=== PATIENT | male | born 1985 | race Caucasian/White ===

== ENCOUNTER 2017-07-21 07:15 | Emergency (ER) | payer OTHER ==
[~2017-07-21] VITALS: Ht 177.8 cm; Wt 87.3 kg
[2017-07-21 07:16] VITALS: TEMP 36.8; Ht 177.8 cm; Wt 87.3 kg
--- NOTE | 2017-07-21 07:55 | EMERGENCY ROOM VISIT NOTE ---
History First contact with patient: 07:21 Chief Complaint: FOREIGNBODY ANY BODY PART Stated Complaint: GLASS IN RIGHT FOOT History of Present Illness The patient is a 31 year old male who presents to the Emergency Room with complaints of a foreign body in his right heel. The patient reports that he stepped on glass on Thanksgiving. He was seen by his PCP yesterday, and had x- rays performed. The patient reports that he was instructed to come to the emergency department for further management. The patient reports that the foot is becoming more painful. He has not noticed any redness of the foot. The pain is worsened with weightbearing, rating his discomfort a 10 out of 10. Upon further questioning, the patient does have crutches at home but has not used them. Review of Systems 6 system review was performed and was negative except for pertinent positives and negatives as indicated in history of present illness Past Medical/Surgical History Medical Problems: (1) Benign hypertension Family History Unremarkable Social History Smoking Status: Current Every Day Smoker Alcohol Use: occasionally Drug Use: marijuana Marital Status: single Housing Status: lives with significant other Occupation Status: employed Current/Historical Medications No Active Prescriptions or Reported Meds Physical Exam Vital Signs Date Time Temp Pulse Resp B/P (MAP) Pulse Ox O2 Delivery O2 Flow Rate FiO2 07/21/17 07:16 36.8 109 20 143/95 96 Room Air Physical Exam CONSTITUTIONAL: Healthy and well nourished. Alert and oriented X 3 with positive affect. HEENT: Normocephalic, atraumatic. Pupils equal, round and reactive. NECK: Full active range of motion without discomfort. MUSCULOSKELETAL: Examination shows an area of hypertrophic tissue on the heel without any surrounding erythema or induration. There are no open wounds. No shadowing is noted with transillumination. INTEGUMENTARY: No rash or other significant dermatologic conditions noted. NEUROLOGIC: No focal neurologic deficits noted. Right foot and toes are sensory intact. Medical Decision & Procedures ED Course Patient history and physical exam were performed. Nurse's notes were reviewed. Vital signs were reviewed, showing an elevated blood pressure 143/95. Examination shows hypertrophic tissue on the heel. I explained to the patient that since it has been in the foot for the past month, he should really follow- up with orthopedics for further procedural intervention. The patient was encouraged to apply a drawing salve and dressing, and use his crutches to minimize weight on the foot. The patient wanted a prescription of pain medication. I explained that weightbearing is what's causing the pain, and if he is not putting weight on the foot, it will not hurt. He was provided contact information for [facility], and instructed to call them the day after [place]. The patient was administered a tetanus diphtheria immunization. The patient has an allergic reaction to pertussis vaccine. I did review hospital records, showing that the patient last received a tetanus immunization over 10 years ago. The patient voiced understanding of all discharge instructions, and denied any significant pain at the conclusion of my exam. The patient was also instructed to follow-up with PCP for blood pressure recheck. Medical Decision Medication Reconcilliation Current Medication List: was personally reviewed by me Blood Pressure Screening Patient's blood pressure: Elevated blood pressure Blood pressure disposition: Referred to PCP Impression Primary Impression: Acute foreign body of right heel Additional Impression: Elevated blood pressure reading Departure Information Dispostion Home / Self-Care Prescriptions No Active Prescriptions or Reported Meds Referrals Umesh Sol D.O. Forms HOME CARE DOCUMENTATION FORM, IMPORTANT VISIT INFORMATION Patient Instructions My [facility] [employer] Additional Instructions Use your crutches to keep weight off of the foot. Suggest applying a drawling salve and bandage to be healed. Ibuprofen if needed for additional pain relief, however crutches will provide the best pain relief. Follow-up with [facility] (Dr. Sol) for further reevaluation. Call their office on Sunday for an appointment. Problem Qualifiers Primary Impression: Acute foreign body of right heel Encounter type: initial encounter Qualified Codes: S90.851A - Superficial foreign body, right foot, initial encounter
[2017-07-21] MEDS ORDERED: DIPHTHERIA/TETANUS TOX ADSORBED ULTRAFINED 0.5 ML SYR/VIAL IM. ONE (08:00)
[2017-07-21 08:20] VITALS: BP 126/86; PULSE 85; O2SAT 99
== END 2017-07-21 08:21 | disposition home or self-care (01) ==
LOC: C.EDB 07:16 → C.EDA 08:21
DX: S90.851A Superficial foreign body, right foot, initial encounter (principal); W45.8XXA Other foreign body or object entering through skin, initial encounter; R03.0 Elevated blood-pressure reading, without diagnosis of hypertension; Z23 Encounter for immunization; I10 Essential (primary) hypertension; F17.200 Nicotine dependence, unspecified, uncomplicated

== ENCOUNTER 2017-08-24 17:07 | Inpatient (IN) | payer OTHER ==
[~2017-08-24] VITALS: Ht 177.8 cm; Wt 90.8 kg
[2017-08-24] MEDS ORDERED: DILTIAZEM HCL 5 MG/ML 5 ML VIAL ONE (17:16)
[2017-08-24] MEDS ORDERED: DILTIAZEM HCL 5 MG/ML 5 ML VIAL IV STA (17:21)
[2017-08-24] MEDS ORDERED: SODIUM CHLORIDE 0.9% 1000ML 1,000 ML IV STA (17:21)
[2017-08-24] MEDS ORDERED: DILTIAZEM BOLUS / DRIP IV STA ×2 (17:25)
--- NOTE | 2017-08-24 17:35 | EMERGENCY ROOM VISIT NOTE ---
History Report prepared by Catalina: Arslan Workman Under the Supervision of: Dr. Robert Garcia M.D. First contact with patient: 17:13 Chief Complaint: CARDIAC ASSESSMENT Stated Complaint: CHEST PAIN,NUMBNESS History of Present Illness The patient is a 31 year old male who presents to the Emergency Room with complaints of constant tachycardia starting around 1530 this afternoon. The patient states that he was drinking some juice, and his heart started racing. The patient states that he feels hot, short of breath, and his hands are getting numb. The patient denies any chest pain and loss of consciousness, though he is getting lightheaded. The patient reports that he was drinking alcohol for the past 3 days, though he did not drink any alcohol today. The patient states that he had an episode similar to this in the past, though it went away on its own. The patient denies any medical problems, and he is not on any medications daily. Per the nursing staff, the patient stated that he smokes marijuana daily, and he smoked this morning. Source of History: patient Onset: 1530 Position: other (heart) Quality: other (tachycardia) Timing: constant Associated Symptoms: + SOB, No LOC, No chest pain Note: Associated symptoms: Hand numbness and light headedness Review of Systems See HPI for pertinent positives & negatives. A total of 10 systems reviewed and were otherwise negative. Past Medical & Surgical Medical Problems: (1) Atrial fibrillation with RVR (2) Benign hypertension Social History Smoking Status: Current Every Day Smoker Alcohol Use: occasionally Drug Use: marijuana Marital Status: single Housing Status: lives with significant other Occupation Status: employed Current/Historical Medications No Active Prescriptions or Reported Meds Allergies Coded Allergies: Pertussis Vaccine (Verified Allergy, Mild, SWELLING, 08/24/17) Acetaminophen (Verified Allergy, Unknown, facial swelling, 08/24/17) Physical Exam Vital Signs Date Time Temp Pulse Resp B/P (MAP) Pulse Ox O2 Delivery O2 Flow Rate FiO2 08/24/17 18:47 161 18 118/94 99 Nasal Cannula 2.0 08/24/17 18:19 165 18 148/94 98 Nasal Cannula 2.0 08/24/17 18:16 186 08/24/17 17:54 175 20 113/96 100 Nasal Cannula 2.0 08/24/17 17:41 97 Room Air 08/24/17 17:31 96 Nasal Cannula 2.0 08/24/17 17:30 167 16 145/88 96 Nasal Cannula 2.0 08/24/17 17:17 258 08/24/17 17:09 36.4 146 20 146/89 99 Room Air Physical Exam GENERAL: Patient is in no acute distress and is slightly anxious appearing. HEENT: No acute trauma, normocephalic atraumatic, mucous membranes moist, no nasal congestion, no scleral icterus. NECK: No stridor, no adenopathy, no meningismus, trachea is midline. LUNGS: Clear to auscultation bilaterally, no wheeze, no rhonchi, breath sounds equal. HEART: Tachycardic and irregular. No murmurs. ABDOMEN: Soft, nontender, bowel sounds positive, no hernias, no peritonitis. EXTREMITIES: No cyanosis or edema, full range of motion of all the joints without pain or difficulty, no signs for acute trauma. NEUROLOGIC: Oriented x 3, no acute motor or sensory deficits, no focal weakness. SKIN: No rash, no jaundice, no diaphoresis. Medical Decision & Procedures ER Provider Diagnostic Interpretation: Radiology results as stated below per my review and radiologist interpretation: CHEST ONE VIEW PORTABLE HISTORY: 31 years-old Male EVALUATE ALTERED MENTAL STATUS/WEAKNESS acutely altered mental status COMPARISON: Chest radiograph 03/31/2013 TECHNIQUE: Portable AP view of the chest FINDINGS: Cardiomediastinal and hilar silhouettes are within normal limits. No pneumothorax, pleural effusion, focal airspace consolidation or overt pulmonary edema. Bones of the chest are grossly intact. IMPRESSION: No acute process. The above report was generated using voice recognition software. It may contain grammatical, syntax or spelling errors. Electronically signed by: Billy Robbins M.D. 08/24/2017 5:52 PM Dictated Date/Time: 08/24/2017 5:51 PM Laboratory Results 08/24/17 17:15 Red Blood Count 5.07, Mean Corpuscular Volume 90.7, Mean Corpuscular Hemoglobin 32.5, Mean Corpuscular Hemoglobin Concent 35.9, Mean Platelet Volume 10.3, Neutrophils (%) (Auto) 68.2, Lymphocytes (%) (Auto) 20.2, Monocytes (%) (Auto) 11.0, Eosinophils (%) (Auto) 0.2, Basophils (%) (Auto) 0.2, Neutrophils # (Auto ) 9.08, Lymphocytes # (Auto) 2.69, Monocytes # (Auto) 1.46, Eosinophils # (Auto ) 0.02, Basophils # (Auto) 0.02 08/24/17 17:15 Test 08/24/17 17:15 08/24/17 17:22 08/24/17 18:05 08/24/17 19:06 White Blood Count 13.30 K/uL (4.8-10.8) Red Blood Count 5.07 M/uL (4.7-6.1) Hemoglobin 16.5 g/dL (14.0-18.0) Hematocrit 46.0 % (42-52) Mean Corpuscular Volume 90.7 fL (80-100) Mean Corpuscular Hemoglobin 32.5 pg (25-34) Mean Corpuscular Hemoglobin Concent 35.9 g/dl (32-36) Platelet Count 318 K/uL (130-400) Mean Platelet Volume 10.3 fL (7.4-10.4) Neutrophils (%) (Auto) 68.2 % Lymphocytes (%) (Auto) 20.2 % Monocytes (%) (Auto) 11.0 % Eosinophils (%) (Auto) 0.2 % Basophils (%) (Auto) 0.2 % Neutrophils # (Auto) 9.08 K/uL (1.4-6.5) Lymphocytes # (Auto) 2.69 K/uL (1.2-3.4) Monocytes # (Auto) 1.46 K/uL (0.11-0.59) Eosinophils # (Auto) 0.02 K/uL (0-0.5) Basophils # (Auto) 0.02 K/uL (0-0.2) RDW Standard Deviation 47.0 fL (36.4-46.3) RDW Coefficient of Variation 14.3 % (11.5-14.5) Immature Granulocyte % (Auto) 0.2 % Immature Granulocyte # (Auto) 0.03 K/uL (0.00-0.02) Prothrombin Time 9.9 SECONDS (9.0-12.0) Prothromb Time International Ratio 0.9 (0.9-1.1) Activated Partial Thromboplast Time 27.8 SECONDS (21.0-31.0) Partial Thromboplastin Ratio 1.1 Anion Gap 11.0 mmol/L (3-11) Est Creatinine Clear Calc Drug Dose 102.8 ml/min Estimated GFR () 98.4 Estimated GFR (Non- 84.9 BUN/Creatinine Ratio 12.6 (10-20) Calcium Level 9.2 mg/dl (8.5-10.1) Magnesium Level 2.0 mg/dl (1.8-2.4) Total Bilirubin 0.5 mg/dl (0.2-1) Aspartate Amino Transf (AST/SGOT) 75 U/L (15-37) Alanine Aminotransferase (ALT/SGPT) 70 U/L (12-78) Alkaline Phosphatase 81 U/L (45-117) Total Protein 8.4 gm/dl (6.4-8.2) Albumin 4.6 gm/dl (3.4-5.0) Globulin 3.8 gm/dl (2.5-4.0) Albumin/Globulin Ratio 1.2 (0.9-2) Thyroid Stimulating Hormone (TSH) 0.886 uIu/ml (0.300-4.500) Bedside Troponin I < 0.030 ng/ml (0-0.045) Urine Opiates Screen NEG (NEG) Urine Methadone, Qualitative NEG (NEG) Urine Barbiturates NEG (NEG) Urine Phencyclidine (PCP) Level NEG (NEG) Ur Amphetamine/Methamphetamine NEG (NEG) MDMA (Ecstasy) Screen NEG (NEG) Urine Benzodiazepines Screen NEG (NEG) Urine Cocaine Metabolite NEG (NEG) Urine Marijuana (THC) POS (NEG) Laboratory results reviewed by me. Medications Administered Medications (Trade) Dose Ordered Sig/Pasquale Route Start Time Stop Time Status Last Admin Dose Admin Sodium Chloride 1,000 ml @ 999 mls/hr Q1H1M STAT IV 08/24/17 17:21 08/24/17 18:21 DC 08/24/17 17:30 999 MLS/HR Diltiazem HCl (Cardizem Inj) 20 mg NOW STAT IV 08/24/17 17:21 08/24/17 17:25 DC 08/24/17 17:29 20 MG Diltiazem HCl 125 mg/Dextrose 125 ml @ 0 mls/hr Q0M PRN IV 08/24/17 17:45 09/23/17 17:44 08/24/17 19:26 25 MLS/HR Diltiazem HCl (Cardizem Bolus From Bag) 10 mg ONE ONCE IV 08/24/17 17:45 08/24/17 17:46 DC 08/24/17 17:44 10 MG Sodium Chloride 500 ml @ 999 mls/hr Q31M STAT IV 08/24/17 18:04 08/24/17 18:34 DC 08/24/17 17:59 999 MLS/HR ECG Indication: tachycardia Rate (beats per minute): 197 Rhythm: atrial fibrillation (rapid) Findings: PVC, other (Diffuse ST and T wave changes consistent with the fast rate) Change: The patient's EKG was interpreted by me. ED Course 1713: The patient was evaluated in room A3. A complete history and physical exam was performed. 1721: Diltiazem HCl 20mg IV, Sodium Chloride 1000 ml @ 999 mls/hr IV 1745: Diltiazem HCl 10mg IV, Diltiazem HCl 125mg/ Dextrose 20mls/hr IV 1802: I reevaluated the patient, and he was still tachycardic. 1804: Sodium Chloride 500 ml @ 999 mls/hr IV 1842: I reassessed the patient, and he was feeling better, though his heart was still going fast in the 160s. I discussed the treatment plan with him, and he was agreeable. 1855: Discussed the patient's case with Marzena Young PA-C. The patient will be evaluated for further management. Medical Decision Differential diagnoses include: A-fib or A-flutter, SVT, electrolyte imbalance, dehydration, anemia, cardiac ischemia, and holiday heart syndrome. There is a mild leukocytosis at 13,000, this could be consistent with infection or just the stress of his current situation. No concerning anemia. No significant electrolyte abnormality, kidney failure or hepatitis. EKG shows a very rapid A. fib with some ST changes. Cardiac enzyme testing times one does not suggest acute cardiac injury. Chest film does not show CHF or significant cardiomegaly. The patient appears to be in a euthyroid state. Urine tox shows marijuana. There is no coagulopathy. The patient was aggressively managed. He was given an IV saline bolus. He received IV diltiazem as a bolus and then was placed on a diltiazem drip. With the above treatment, the heart rate has slowed but he still remains in a rapid A. fib. The patient feels much improved but he will require a hospital stay as he remains in A. fib. This presentation is likely consistent with his recent heavy alcohol use. I did speak to the patient and case management. The on- call hospitalist was consulted. Medication Reconcilliation Current Medication List: was personally reviewed by me Blood Pressure Screening Patient's blood pressure: Elevated blood pressure Monitored by the hospitalist Consults Time Called: 1841 Consulting Physician: Marzena Young PA-C Returned Call: [phone] Discussed the patient's case with Marzena Young PA-C. The patient will be evaluated for further management. Impression Primary Impression: Rapid atrial fibrillation Critical Care I have personally spent greater than 40 minutes of critical care time in the direct management of this patient. This includes bedside care, interpretation of diagnostic studies, and testing, discussion with consultants, patient, and family members, and other required patient management activities. This 40 minutes is in excess of all separately billable procedures. Scribe Attestation The scribe's documentation has been prepared under my direction and personally reviewed by me in its entirety. I confirm that the note above accurately reflects all work, treatment, procedures, and medical decision making performed by me. Departure Information Dispostion Being Evaluated By Hospitalist Prescriptions No Active Prescriptions or Reported Meds Referrals No Doctor, Assigned (PCP) Patient Instructions My [facility]
[2017-08-24] MEDS: DILTIAZEM HCL INJ 125 MG in DEXTROSE 5% 100ML IV PRN ×7 (17:38→22:21)
[2017-08-24] MEDS ORDERED: DILTIAZEM BOLUS FROM BAG IV ONE (17:45)
[2017-08-24] MEDS ORDERED: NURSING VERBAL MED ORDER ONE (17:45)
--- NOTE | 2017-08-24 17:53 | DIAGNOSTIC IMAGING REPORT ---
CHEST ONE VIEW PORTABLE HISTORY: 31 years-old Male EVALUATE ALTERED MENTAL STATUS/WEAKNESS acutely altered mental status COMPARISON: Chest radiograph 03/31/2013 TECHNIQUE: Portable AP view of the chest FINDINGS: Cardiomediastinal and hilar silhouettes are within normal limits. No pneumothorax, pleural effusion, focal airspace consolidation or overt pulmonary edema. Bones of the chest are grossly intact. IMPRESSION: No acute process. The above report was generated using voice recognition software. It may contain grammatical, syntax or spelling errors. Electronically signed by: Billy Robbins M.D. 08/24/2017 5:52 PM Dictated Date/Time: 08/24/2017 5:51 PM
[2017-08-24 18:02] LABS: INR 0.9 (0.9-1.1); PTT PATIENT 27.8 SECONDS (21.0-31.0)
[2017-08-24] MEDS ORDERED: SODIUM CHLORIDE 0.9% 500ML 500 ML IV STA (18:04)
[2017-08-24 18:11] LABS: ALBUMIN 4.6 gm/dl (3.4-5.0); CALCIUM 9.2 mg/dl (8.5-10.1); CREATININE 1.15 mg/dl (0.60-1.40); POTASSIUM 3.3 mmol/L (3.5-5.1)
[2017-08-24 18:22] LABS: TOTAL PROTEIN 8.4 gm/dl (6.4-8.2)
[2017-08-24 18:38] LABS: BASO % 0.2 %; BASO ABS # 0.02 K/uL (0-0.2); EOS % 0.2 %; EOS ABS # 0.02 K/uL (0-0.5); HEMOGLOBIN 16.5 g/dL (14.0-18.0); IG# 0.03 K/uL (0.00-0.02); LYMPH % 20.2 %; LYMPH ABS # 2.69 K/uL (1.2-3.4); MEAN CELL VOLUME 90.7 fL (80-100); MEAN CORPUSCULAR HEMOGLOBIN 32.5 pg (25-34); MEAN CORPUSCULAR HGB CONC 35.9 g/dl (32-36); MEAN PLATELET VOLUME 10.3 fL (7.4-10.4); MONO ABS # 1.46 K/uL (0.11-0.59); NEUT % 68.2 %; NEUT ABS # 9.08 K/uL (1.4-6.5); PLATELET COUNT 318 K/uL (130-400); RED CELL DISTRIBUTION WIDTH CV 14.3 % (11.5-14.5)
[2017-08-24] MEDS ORDERED: DILTIAZEM BOLUS / DRIP IV SCH (19:30)
[2017-08-24] MEDS ORDERED: POTASSIUM CHLR 10 MEQ / WTR 10 MEQ in PREMIXED WATER 100 ML IV STA (19:31)
[2017-08-24] MEDS ORDERED: NITROGLYCERIN 0.4 MG SL PER TAB CHARGE SL PRN (19:45)
[2017-08-24] MEDS ORDERED: ALUMINUM/MAGNESIUM/SIMETH (MAALOX MAX) 30 ML UDC PO PRN (19:45)
[2017-08-24] MEDS ORDERED: ONDANSETRON INJ 2 MG/ML 2 ML VIAL IV PRN (19:45)
[2017-08-24] MEDS ORDERED: MAGNESIUM HYDROXIDE SUSP 30 ML UDC PO PRN (19:45)
[2017-08-24] MEDS ORDERED: LORAZEPAM 2 MG/ML 1 ML VIAL IV PRN ×2 (19:45)
[2017-08-24] MEDS ORDERED: LORAZEPAM 2 MG/ML 1 ML VIAL IV STA (19:46)
[2017-08-24] MEDS ORDERED: LORAZEPAM 2 MG/ML 1 ML VIAL ONE (19:46)
--- NOTE | 2017-08-24 19:55 | History and Physical ---
History & Physical Date & Time of Service: Aug 24, 2017 at 19:54 Chief Complaint: Palpitations Primary Care Physician: MD Kiara History of Present Illness Source: patient, clinic records, hospital records This is a 31yo M with a PMH of alcohol abuse, tobacco and marijuana use who presents with palpitations that began at 3pm. Patient has been drinking heavily for years but has recently increased his intake due to 1 bottle of lety a day due to work stress. Has had a bottle a day of lety for the past 3 days with his last drink at 7pm last evening. Started to feel flushed and sweaty today, with a rapid heart rate.States that he has felt similar to this in withdrawal before but that his heart was beating much faster for a longer period of time today, so he had his family bring him from work to the ED for further evaluation. Endorses lightheadedness, nausea and some visual changes when he sits up or stands up quickly. Denies any fever, chills, pre-syncope, syncope, seizures, headache, confusion, chest pain, vomiting or difficulty with ambulation. Denies history of arrhythmias. Denies history of seizures with alcohol withdrawals in the past. Last used marijuana this morning. Past Medical/Surgical History Medical Problems: (1) Alcohol use disorder Status: Chronic (2) Tobacco use disorder Status: Chronic Social History Problems: (1) Marijuana use Status: Chronic Family History FH: heart disease FATHER (ID at age 51) MOTHER (ID at age 45 ) FH: hyperlipidemia Social History Smoking Status: Current Every Day Smoker (0.5-1 ppd) Alcohol Use: heavy (Drinks ~1 bottle of lety 5 days/week. ) Drug Use: marijuana Marital Status: in relationship Occupational Status: employed Allergies Coded Allergies: Pertussis Vaccine (Verified Allergy, Mild, SWELLING, 08/24/17) Acetaminophen (Verified Allergy, Unknown, facial swelling, 08/24/17) Home Medications No Active Prescriptions or Reported Meds Review of Systems Ten systems reviewed and negative except as noted in the HPI. Physical Exam Vital Signs Date Time Temp Pulse Resp B/P (MAP) Pulse Ox O2 Delivery O2 Flow Rate FiO2 08/24/17 18:47 161 18 118/94 99 Nasal Cannula 2.0 08/24/17 18:19 165 18 148/94 98 Nasal Cannula 2.0 08/24/17 18:16 186 08/24/17 17:54 175 20 113/96 100 Nasal Cannula 2.0 08/24/17 17:41 97 Room Air 08/24/17 17:31 96 Nasal Cannula 2.0 08/24/17 17:30 167 16 145/88 96 Nasal Cannula 2.0 08/24/17 17:17 258 08/24/17 17:09 36.4 146 20 146/89 99 Room Air General Appearance: + moderate distress, + pertinent finding (Anxious, flushed , sweaty.) Head: normocephalic, atraumatic Eyes: normal inspection, PERRL, sclerae normal ENT: normal ENT inspection, hearing grossly normal, pharynx normal (dry mucous membranes ) Neck: supple, thyroid normal, trachea midline Respiratory/Chest: lungs clear, normal breath sounds, no respiratory distress, no accessory muscle use Cardiovascular: normal peripheral pulses, + tachycardia, + irregularly irregular Abdomen/GI: non tender, soft, no organomegaly Extremities/Musculoskelatal: normal inspection, no calf tenderness, no pedal edema Neurologic/Psych: alert, normal mood/affect, oriented x 3 Skin: normal color (flushed ), warm/dry Diagnostics Laboratory Results Results Past 24 Hours Test 08/24/17 17:15 08/24/17 17:22 08/24/17 18:05 08/24/17 19:38 Range/Units White Blood Count 13.30 4.8-10.8 K/uL Red Blood Count 5.07 4.7-6.1 M/uL Hemoglobin 16.5 14.0-18.0 g/dL Hematocrit 46.0 42-52 % Mean Corpuscular Volume 90.7 80-100 fL Mean Corpuscular Hemoglobin 32.5 25-34 pg Mean Corpuscular Hemoglobin Concent 35.9 32-36 g/dl Platelet Count 318 130-400 K/uL Mean Platelet Volume 10.3 7.4-10.4 fL Neutrophils (%) (Auto) 68.2 % Lymphocytes (%) (Auto) 20.2 % Monocytes (%) (Auto) 11.0 % Eosinophils (%) (Auto) 0.2 % Basophils (%) (Auto) 0.2 % Neutrophils # (Auto) 9.08 1.4-6.5 K/uL Lymphocytes # (Auto) 2.69 1.2-3.4 K/uL Monocytes # (Auto) 1.46 0.11-0.59 K/uL Eosinophils # (Auto) 0.02 0-0.5 K/uL Basophils # (Auto) 0.02 0-0.2 K/uL RDW Standard Deviation 47.0 36.4-46.3 fL RDW Coefficient of Variation 14.3 11.5-14.5 % Immature Granulocyte % (Auto) 0.2 % Immature Granulocyte # (Auto) 0.03 0.00-0.02 K/uL Prothrombin Time 9.9 9.0-12.0 SECONDS Prothromb Time International Ratio 0.9 0.9-1.1 Activated Partial Thromboplast Time 27.8 21.0-31.0 SECONDS Partial Thromboplastin Ratio 1.1 Sodium Level 137 136-145 mmol/L Potassium Level 3.3 3.5-5.1 mmol/L Chloride Level 103 98-107 mmol/L Carbon Dioxide Level 23 21-32 mmol/L Anion Gap 11.0 3-11 mmol/L Blood Urea Nitrogen 15 7-18 mg/dl Creatinine 1.15 0.60-1.40 mg/dl Est Creatinine Clear Calc Drug Dose 102.8 ml/min Estimated GFR () 98.4 Estimated GFR (Non- 84.9 BUN/Creatinine Ratio 12.6 10-20 Random Glucose 139 70-99 mg/dl Calcium Level 9.2 8.5-10.1 mg/dl Magnesium Level 2.0 1.8-2.4 mg/dl Total Bilirubin 0.5 0.2-1 mg/dl Aspartate Amino Transf (AST/SGOT) 75 15-37 U/L Alanine Aminotransferase (ALT/SGPT) 70 12-78 U/L Alkaline Phosphatase 81 45-117 U/L Total Protein 8.4 6.4-8.2 gm/dl Albumin 4.6 3.4-5.0 gm/dl Globulin 3.8 2.5-4.0 gm/dl Albumin/Globulin Ratio 1.2 0.9-2 Thyroid Stimulating Hormone (TSH) 0.886 0.300-4.500 uIu/ml Bedside Troponin I < 0.030 0-0.045 ng/ml Urine Opiates Screen NEG NEG Urine Methadone, Qualitative NEG NEG Urine Barbiturates NEG NEG Urine Phencyclidine (PCP) Level NEG NEG Ur Amphetamine/Methamphetamine NEG NEG MDMA (Ecstasy) Screen NEG NEG Urine Benzodiazepines Screen NEG NEG Urine Cocaine Metabolite NEG NEG Urine Marijuana (THC) POS NEG CXR normal EKG A fib with RVR at a rate of 197 bpm with some PVCs. Diffuse ST and T wave changes Impression Assessment and Plan This is a 31yo M with a PMH of alcohol abuse, tobacco and marijuana use who presents with palpitations that began at 3pm. 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 Patient seen in collaboration with . Please see addendum. ATTENDING ADDENDUM : pt seen and examined ,care co ordinated with Donna Tamez PA-C 31 yo M hx of chronic alcohol/marijuana abuse -has been drinking non stop -1-2 Bottles for Lety last 3 days per Pt his Last alcohol drink was 7 pm around 3 PM today -he felt hot and flushed , with flutter /palpitation in chest , Dizzy and lightheaded , SOB in ER -pt found to be in Rapid AFib HR between 180-200 pt is very anxious complains of chest heaviness , palpitation no prior cardiac hx of arrhythmia P/E: GEn ; anxious young male , very flushed HEENT : sclera non icteric HT : rapid , irregular , no JVD noted, no lower ext edema Lungs: clear , no wheeze or rales Abdomen : soft, non tender Neuro: anxious , no focal neurological deficit A/P : RAPID AFIB RVR : possible due to alcohol toxicity /withdrawal symptom no prior hx of arrhythmia , or CAD/valvular disease pt given IV Cardizem bolus followed by IV Cardizem grt rate increased to 30 mg /hr , HR remains persistently elevated 150-180 pt is symptomatic with SOB , palpitation D/w Cardiology Dr Prado , pt will be IV Lopressor for severe withdrawal symptom /arrhythmia 5 mg IV Lopressor given in ER scheduled order : IV Lopressor q 6hrs ECHO /cardiac markers ordered pt will be evaluated by Cardiology in AM role of IV heparin d.w Cardiology pt;s CHAD2 scores :0 given risk for severe withdrawal -can lead to hypertensive Urgency -risk of IV heparin is higher than benefit will avoid anticoagulation cont Beta blocked for with drawl symptom ALCOHOL ABUSE /ETOH WITHDRAWAL hx of alcohol abuse has been drinking heavily past 3 days denies of past withdrawal SZ or requiring intubation pt is very anxious with tachyarrhythmia will be admitted to ICU beta elio for Afib RVR IV fluids with thiamine /folate will be started on Precedex gtt in ICU plan of care D/w ICU team LOW k due to alcohol abuse replaced follow K/Mg /phos level FULL CODE DVT PROPHYLAXIS ; sub q heparin DISPOSITION : admit to ICU for concern of severe Alcoholic withdrawal /refractory Afib RVR Maricruz Rodriguez MD Level of Care Critical Care Resuscitation Status FULL RESUSCITATION VTE Prophylaxis VTE Risk Assessment Done? Y/N: Yes Risk Level: High Given or contraindicated: Unfractionated heparin SQ Additional Copies To Rocky Craig M.D. Lesko, Michael G., DO
[2017-08-24] MEDS ORDERED: THIAMINE HCL 100 MG TAB PO ONE (20:00)
[2017-08-24] MEDS ORDERED: POTASSIUM CHLORIDE 10 MEQ TABCR PO ONE (20:00)
[2017-08-24] MEDS ORDERED: METOPROLOL TARTRATE 50 MG TAB PO ONE (20:00)
[2017-08-24] MEDS ORDERED: METOPROLOL TARTRATE 1 MG/ML VIAL IV STA (20:19)
[2017-08-24] MEDS ORDERED: METOPROLOL TARTRATE 1 MG/ML VIAL ONE (20:29)
[2017-08-24] MEDS ORDERED: DexMEDEtomidine HCL IV 200 MCG in SODIUM CHLORIDE 0.9% 50ML 48 ML IV PRN (20:32)
[2017-08-24] MEDS ORDERED: OPTIRAY 320 IV PRN (20:45)
[2017-08-24] MEDS ORDERED: POTASSIUM PHOS 3 MMOL/1 ML INFUSION IV STA (20:54)
[2017-08-24] MEDS ORDERED: METOPROLOL TARTRATE 50 MG TAB PO SCH ×2 (21:00)
[2017-08-24] MEDS ORDERED: POTASSIUM PHOSPHATE INJ 6 MMOL in SODIUM CHLORIDE 0.9% 100ML 100 ML IV ONE (21:15)
[2017-08-24] MEDS ORDERED: ICU PROTOCOL FOR HYPERGLYCEMIA PRN (21:15)
[2017-08-24 21:17] VITALS: BP 115/90; PULSE 111; TEMP 37; O2SAT 95
--- NOTE | 2017-08-24 21:22 | DIAGNOSTIC IMAGING REPORT ---
CHEST CTA for PULMONARY ARTERIES CT DOSE: 285.15 mGy.cm HISTORY: Atypical chest pain. TECHNIQUE: Multiaxial CT images of the chest were performed following the intravenous administration of contrast to evaluate the pulmonary arteries. Maximal intensity projection images were also obtained. A dose lowering technique was utilized adhering to the principles of ALARA. COMPARISON STUDY: Chest 12/12/2014. FINDINGS: There is a normal caliber thoracic aorta with no evidence for dissection. There is no evidence for pulmonary embolus. No pleural effusions. No pneumothorax. The liver and spleen are unremarkable. No mediastinal or hilar lymphadenopathy. The central airways are patent. No focal lung consolidations. Stable 3 mm nodule within the left upper lobe, stable 3 mm nodule within the right lower lobe and a stable 6 mm subpleural nodules along the right minor fissure. These are likely benign. IMPRESSION: 1. No evidence for pulmonary embolus. 2. Stable subcentimeter pulmonary nodules which are likely benign given the stability. Electronically signed by: Ben Leon M.D. 08/24/2017 9:21 PM Dictated Date/Time: 08/24/2017 9:13 PM
[2017-08-24] MEDS ORDERED: GABAPENTIN 600 MG TAB PO STA (21:24)
[2017-08-24] MEDS ORDERED: THIAMINE HCL 100 MG TAB PO STA (21:24)
[2017-08-24] MEDS ORDERED: MULTI-VITAMIN INFUSION INJ 10 ML, THIAMINE HCL INJ 100 MG, FoLIC ACID INJ 1 MG in SODIU... IV ONE (21:30)
[2017-08-24 21:46] VITALS: BP 115/90; PULSE 123; TEMP 37; O2SAT 97; Ht 177.8 cm; Wt 90.8 kg
[2017-08-24 22:00] VITALS: BP 129/82; PULSE 105; O2SAT 96
[2017-08-24] MEDS: D5W AND NSS 1,000 ML IV SCH (22:22)
--- NOTE | 2017-08-24 22:51 | Critical Care Consultation ---
Critical Care Consultation Date of Consultation: Aug 24, 2017. Attending Physician: Tamie German D.O. Reason for Consultation: 31-year-old male in A. fib with RVR likely secondary to significant alcohol withdrawal requiring close cardiovascular monitoring/treatment for breakthrough withdraw symptoms. History of Present Illness Patient is a 31-year-old male with no pertinent past medical history presenting to the emergency department with abrupt onset of tachycardia and shortness of breath. He reports that at approximately 3:30 PM, he was drinking juice when he noticed his heart was racing. He developed some associated shortness of breath and numbness in his head and hands bilaterally. He thought the feeling would pass as he has experienced this previously, however, his symptoms persisted prompting visit to the emergency department. Upon arrival to the emergency department, the patient was found to be in atrial fibrillation with rapid ventricular response. He received diltiazem 2 while in the emergency department. He was started on a diltiazem drip and received IV fluids. He had no fever. There is a slight leukocytosis. Chest x-ray demonstrates no acute findings. Cardiac enzymes were unremarkable. He has a slight hypokalemia of 3.3. Otherwise, his laboratory assessment was otherwise unremarkable. The patient admits to drinking "a few" shots of corinna daily. He does admit to having withdrawal like symptoms including flushed face, nausea, and runs of tachycardia if he is without alcohol for greater than 24 hours. The patient admits that he was "drunk for 36 hours straight" admitting to drinking one bottle of corinna per day. He has not had a drink since 7:30 last evening. While he has never had a seizure related to alcohol withdrawal, he does report his tachycardia some thin the does occur if he does not drink within 24 hours. Other than the persistent tachycardia, he reports that this feels consistent with previous episodes of withdrawal. The patient admits to increasing tobacco use in the form of cigarettes recently as his alcohol consumption is increased as well. He admits to regular marijuana use. He denies any other illicit substance use. Upon arrival to the ICU, the patient reports feeling much better after the administration of Ativan. He denies any current headaches, dizziness, lightheadedness, chest pain, palpitations, pleuritic pain, short of breath, nausea, vomiting, abdominal pain, hematochezia, melena, hematuria, or dysuria. The patient lives at home with his significant other. He reports no other daily medications. No significant family history of dysrhythmias, congenital cardiac illnesses, or sudden cardiac in young age individuals. Past Medical/Surgical History Medical Problems: (1) Alcohol use disorder (2) Tobacco use disorder Social History Problems: (1) Marijuana use Family History FH: heart disease FATHER (PR at age 51) MOTHER (PR at age 45 ) FH: hyperlipidemia Noncontributory Social History Smoking Status: Current Every Day Smoker Smokeless Tobacco Use: No Alcohol Use: heavy (Drinks ~1 bottle of corinna 5 days/week. ) Drug Use: marijuana Marital Status: in relationship Housing Status: lives with significant other Occupation Status: employed Allergies Coded Allergies: Pertussis Vaccine (Verified Allergy, Mild, SWELLING, 08/24/17) Acetaminophen (Verified Allergy, Unknown, facial swelling, 08/24/17) Home Medications Scheduled Folic Acid (Folic Acid), 1 TAB PO DAILY Thiamine HCl (Vitamin B-1), 100 MG PO DAILY Current Inpatient Medications Current Inpatient Medications Medications (Trade) Dose Ordered Sig/Pasquale Route Start Time Stop Time Status Last Admin Dose Admin Diltiazem HCl 125 mg/Dextrose 125 ml @ 0 mls/hr Q0M PRN IV 08/24/17 17:45 09/23/17 17:44 08/24/17 20:01 30 MLS/HR Aspirin (Ecotrin Tab) 81 mg QAM PO 08/25/17 09:00 09/24/17 08:59 Al Hydrox/Mg Hydrox/Simethicone (Maalox Max Susp) 15 ml Q4H PRN PO 08/24/17 19:45 09/23/17 19:44 Magnesium Hydroxide (Milk Of Magnesia Susp) 30 ml Q12H PRN PO 08/24/17 19:45 09/23/17 19:44 Ondansetron HCl (Zofran Inj) 4 mg Q6H PRN IV 08/24/17 19:45 09/23/17 19:44 Nitroglycerin (Nitrostat Tab) 0.4 mg UD PRN SL 08/24/17 19:45 09/23/17 19:44 Multivitamins 10 ml/Thiamine HCl 100 mg/Folic Acid 1 mg/Sodium Chloride 1,011.2 ml @ 500 mls/ hr Q2H2M ONCE IV 08/24/17 21:30 08/24/17 23:31 08/24/17 21:52 500 MLS/HR Lorazepam (Ativan Inj) PRN Dosing -Active Protocol Q1H PRN IV 08/24/17 19:45 09/23/17 19:44 08/24/17 22:12 2 MG Metoprolol Tartrate (Lopressor Iv) 5 mg Q6 IV. 08/25/17 00:00 09/24/17 00:00 Dextrose/Sodium Chloride 1,000 ml @ 200 mls/hr Q5H IV 08/24/17 22:00 09/23/17 21:59 Dexmedetomidine HCl 200 mcg/ Sodium Chloride 50 ml @ 0 mls/hr Q0M PRN IV 08/24/17 20:32 08/28/17 20:31 Ioversol (Optiray 320) 100 ml UD PRN IV 08/24/17 20:45 08/28/17 20:44 Potassium Phosphate 6 mmol/ Sodium Chloride 102 ml @ 88 mls/hr ONE ONCE IV 08/24/17 21:15 08/24/17 22:24 08/24/17 21:53 88 MLS/HR Miscellaneous Information (Icu Protocol For Hyperglycemia) 1 ea PRN PRN N/A 08/24/17 21:15 08/26/17 21:14 Thiamine HCl (Vitamin B-1 Tab) 100 mg DAILY PO 08/25/17 09:00 09/24/17 08:59 Gabapentin (Neurontin Tab) 600 mg Q6H PO 08/25/17 04:00 08/25/17 10:01 Gabapentin (Neurontin Tab) 600 mg Q8H PO 08/25/17 18:00 08/26/17 10:01 Gabapentin (Neurontin Tab) 600 mg Q12H PO 08/26/17 22:00 08/27/17 10:01 Gabapentin (Neurontin Tab) 600 mg Q24H PO 08/28/17 10:00 08/28/17 10:01 Heparin Sodium (Porcine) (Heparin Sq 5000 Unit/0.5ml) 5,000 unit Q12 SQ 08/25/17 09:00 09/24/17 08:59 Pantoprazole Sodium (Protonix Tab) 40 mg QAM PO 08/25/17 09:00 08/28/17 09:01 Review of Systems A complete 10-point Review of Systems was discussed with the patient, with pertinent positives and negatives listed in the History of Present Illness. All remaining Review of Systems questions can be considered negative unless otherwise specified. Physical Exam Date Time Temp Pulse Resp B/P (MAP) Pulse Ox O2 Delivery O2 Flow Rate FiO2 08/24/17 21:46 37.0 123 18 115/90 97 Room Air 08/24/17 20:54 129 20 148/89 95 08/24/17 20:43 129 20 148/89 95 Nasal Cannula 2.0 08/24/17 20:32 153 139/90 08/24/17 19:50 204 20 157/103 96 Room Air 08/24/17 18:47 161 18 118/94 99 Nasal Cannula 2.0 08/24/17 18:19 165 18 148/94 98 Nasal Cannula 2.0 08/24/17 18:16 186 08/24/17 17:54 175 20 113/96 100 Nasal Cannula 2.0 08/24/17 17:41 97 Room Air 08/24/17 17:31 96 Nasal Cannula 2.0 08/24/17 17:30 167 16 145/88 96 Nasal Cannula 2.0 08/24/17 17:17 258 08/24/17 17:09 36.4 146 20 146/89 99 Room Air VITAL SIGNS - Vital signs and nursing notes were reviewed. GENERAL - 31-year-old male appearing his stated age who is in no acute distress. Anxious appearing. Communicates well with provider and answers questions appropriately. SKIN - Without rashes. HEAD - NC/AT. EYES - PERRL with EOMI bilaterally. Sclera anicteric. Palpebral conjunctiva pink and moist with no injection noted. EARS - No deformities of external structures noted on gross examination bilaterally. NOSE - Midline and without cyanosis. MOUTH/OROPHARYNX - Without perioral cyanosis. Buccal mucosa pink and moist and without leukoplakia. Tongue midline with equal elevation of palate bilaterally. No tonsillar hypertrophy, erythema, or exudates noted. Good dentition noted. NECK - Neck with FROM. Supple to palpation. No lymphadenopathy noted. No nuchal rigidity. LUNGS - Chest wall symmetric without accessory muscle use, intercostals retractions, or central cyanosis. Normal vesicular breath sounds CTA B/L. No wheezes, rales, or rhonchi appreciated. CARDIAC - RRR with S1/S2. No murmur, rubs, or gallops appreciated. ABDOMEN - Abdominal contour flat without pulsations or visible masses. BS normoactive all four quadrants. No tenderness, palpable masses, hepatosplenomegaly, or ascites noted. EXTREMITIES - No clubbing or peripheral cyanosis. No pretibial edema present. +3 /5 radial and dorsalis pedis pulses palpated throughout. +5/5 strength noted in UE/LE bilaterally. NEUROLOGIC - Cranial nerves II through XII grossly intact. Sensory intact to light touch throughout. PSYCH - A&Ox3 and cooperates fully with examiner. Pt is very pleasant and interacts well with examiner. Laboratory Results Last 24 Hours Test 08/24/17 17:15 08/24/17 17:22 08/24/17 18:05 08/24/17 19:38 White Blood Count 13.30 K/uL Red Blood Count 5.07 M/uL Hemoglobin 16.5 g/dL Hematocrit 46.0 % Mean Corpuscular Volume 90.7 fL Mean Corpuscular Hemoglobin 32.5 pg Mean Corpuscular Hemoglobin Concent 35.9 g/dl Platelet Count 318 K/uL Mean Platelet Volume 10.3 fL Neutrophils (%) (Auto) 68.2 % Lymphocytes (%) (Auto) 20.2 % Monocytes (%) (Auto) 11.0 % Eosinophils (%) (Auto) 0.2 % Basophils (%) (Auto) 0.2 % Neutrophils # (Auto) 9.08 K/uL Lymphocytes # (Auto) 2.69 K/uL Monocytes # (Auto) 1.46 K/uL Eosinophils # (Auto) 0.02 K/uL Basophils # (Auto) 0.02 K/uL RDW Standard Deviation 47.0 fL RDW Coefficient of Variation 14.3 % Immature Granulocyte % (Auto) 0.2 % Immature Granulocyte # (Auto) 0.03 K/uL Prothrombin Time 9.9 SECONDS Prothromb Time International Ratio 0.9 Activated Partial Thromboplast Time 27.8 SECONDS Partial Thromboplastin Ratio 1.1 Sodium Level 137 mmol/L Potassium Level 3.3 mmol/L Chloride Level 103 mmol/L Carbon Dioxide Level 23 mmol/L Anion Gap 11.0 mmol/L Blood Urea Nitrogen 15 mg/dl Creatinine 1.15 mg/dl Est Creatinine Clear Calc Drug Dose 102.8 ml/min Estimated GFR () 98.4 Estimated GFR (Non- 84.9 BUN/Creatinine Ratio 12.6 Random Glucose 139 mg/dl Calcium Level 9.2 mg/dl Phosphorus Level 2.2 mg/dl Magnesium Level 2.0 mg/dl Total Bilirubin 0.5 mg/dl Aspartate Amino Transf (AST/SGOT) 75 U/L Alanine Aminotransferase (ALT/SGPT) 70 U/L Alkaline Phosphatase 81 U/L Total Protein 8.4 gm/dl Albumin 4.6 gm/dl Globulin 3.8 gm/dl Albumin/Globulin Ratio 1.2 Thyroid Stimulating Hormone (TSH) 0.886 uIu/ml Bedside Troponin I < 0.030 ng/ml Urine Opiates Screen NEG Urine Methadone, Qualitative NEG Urine Barbiturates NEG Urine Phencyclidine (PCP) Level NEG Ur Amphetamine/Methamphetamine NEG MDMA (Ecstasy) Screen NEG Urine Benzodiazepines Screen NEG Urine Cocaine Metabolite NEG Urine Marijuana (THC) POS Ethyl Alcohol mg/dL < 3.0 mg/dl Diagnostic Results Radiological imaging and reports were reviewed by myself. Radiologist's Interpretation as follows: CHEST ONE VIEW PORTABLE HISTORY: 31 years-old Male EVALUATE ALTERED MENTAL STATUS/WEAKNESS acutely altered mental status COMPARISON: Chest radiograph 03/31/2013 TECHNIQUE: Portable AP view of the chest FINDINGS: Cardiomediastinal and hilar silhouettes are within normal limits. No pneumothorax, pleural effusion, focal airspace consolidation or overt pulmonary edema. Bones of the chest are grossly intact. IMPRESSION: No acute process. CHEST CTA for PULMONARY ARTERIES CT DOSE: 285.15 mGy.cm HISTORY: Atypical chest pain. TECHNIQUE: Multiaxial CT images of the chest were performed following the intravenous administration of contrast to evaluate the pulmonary arteries. Maximal intensity projection images were also obtained. A dose lowering technique was utilized adhering to the principles of ALARA. COMPARISON STUDY: Chest 12/12/2014. FINDINGS: There is a normal caliber thoracic aorta with no evidence for dissection. There is no evidence for pulmonary embolus. No pleural effusions. No pneumothorax. The liver and spleen are unremarkable. No mediastinal or hilar lymphadenopathy. The central airways are patent. No focal lung consolidations. Stable 3 mm nodule within the left upper lobe, stable 3 mm nodule within the right lower lobe and a stable 6 mm subpleural nodules along the right minor fissure. These are likely benign. IMPRESSION: 1. No evidence for pulmonary embolus. 2. Stable subcentimeter pulmonary nodules which are likely benign given the stability. Assessment & Plan (1) Atrial fibrillation with RVR (2) Alcohol withdrawal Reason Critically Ill: 31-year-old male in A. fib with RVR likely secondary to significant alcohol withdrawal requiring close cardiovascular monitoring/ treatment for breakthrough withdraw symptoms. Neuro - * CAM ICU: NEGATIVE * Acute Alcohol Withdraw: * CIWA protocol in place - PRN Ativan/Gabapentin * Banana Bag. * Thiamine daily. * Precedex for worsening 2/2. Cardiac - * Atrial Fibrillation with Rapid Ventricular Response in the setting of acute alcohol withdraw ("[facility]"): * Continue Diltiazem gtt per cardiology. * PRN Metoprolol for rate control. * Precedex may be useful if EtOH w/d 2/2 worsen (i.e. tachy/HTN). * EKG - A-fib RVR@197bpm; QTc 402ms * AM Echo * Daily EKGs * Added CTA for ?Pulm Dz contributing (i.e. PE) * Appreciate Cardiology consultation. Respiratory - * No h/o Pulmonary Disease. * Daily Smoker: * Smoking cessation. * Nicotine patch PRN. * CT for PE ordered: * Daily smoker, Sedentary lifestyle, New onset A.fib RVR. * CTA Negative. * Supplemental O2 PRN. * Continuous Pulse Oximetry. GI - * Prophylaxis: Protonix * Normal Diet. * Will add Amylase/Lipase in the setting of EtOH abuse. RENAL/LYTES - * Hypokalemia: * Replaced by admitting service. * Will continue to monitor electrolytes for contribution to dysrhythmias. Replace appropriately. * D5W NSS@200mL/hr at this point. * Will monitor BSG and adjust maintenance fluids accordingly. * Banana Bag - will add for daily supplementation. - * No Sin at this point. * I&Os per protocol. ENDO - * No h/o DM. * BSGs w/ ISS/gtt per protocol. * No PMHx/FHx Thyroid disease. * TSH wnl - likely not contributing to A-fib. HEME - * Stable H&H - will trend. ID - * No concerns for Infection at this point. * Monitor fever curve. LINES/IV ACCESS - * PIVs intact. * Will reassess need for CVL if condition changes/medication needs require. DVT PROPHYLAXIS - * Per cardiology - will refrain from Heparin gtt at this point. * Will prophylax w/ Heparin SQ. * SCDs I have personally spent 45 minutes of critical care time in the direct management of this patient. This is a life/limb threatening event. This includes time spent evaluating patient, direct bedside care, chart review, placing orders, interpretation of diagnostic studies, discussion with consultants, patient, and family members, as well as other required patient management activities. This time is exclusive of all separately billable procedures, and teaching time and separate from and in addition to any other critical care service time. Thank you for this consultation allow us to be part of this patient's care. Please refer to my attending physician's documentation for any further recommendations. Attending addendum, The patient was seen, examined independently, chart reviewed, agree with assessment and plan of my colleague Jaylan. The patient presented to the hospital with episodes of palpitation and found to be in rapid A. fib. The patient was placed on Cardizem drip and did not require heparinization. The patient was seen by cardiology and appreciate their input. The patient underwent echocardiogram which showed normal LV function. No evidence also of venous thromboembolic event in this patient. The patient has been drinking heavily after he lost his job for the past month and he has not been in withdrawal. Most symptoms occur to him once he is abstinent from alcohol includes only diaphoresis. His physical exam today revealed young gentleman does not appear to be in any distress, his vital signs are stable, he is in normal sinus rhythm, rate of 80, blood pressure and O2 saturation on normal, S1-S2 regular rate and rhythm, lungs are clear, abdomen is benign, neurologically without tremor and nonfocal. His labs were reviewed as well as his imaging. All appeared normal except for minor atelectasis in the chest x-ray. Impression: #1 binge drinking of alcohol. #2 brief period of A. fib, rate controlled and converted to sinus rhythm. Appreciate cardiology input, no further recommendations or treatment is warranted. #3 I will start the patient on treatment with thiamine for the next 5 days. #4 the patient was to go home and he can be discharged safely from pulmonary standpoint. #5 the patient was instructed to quit alcohol. #6 he appears to be alert and oriented the following commands and no altered mental status. He is functional and he has no gait imbalance. He can be safely discharged to home. He lives with his fianc at home. He was advised to return back to the hospital if any medical issues emerged. Case discussed with the staff on rounds and details, CCT 45 minutes.
[2017-08-24 23:01] VITALS: BP 99/60; PULSE 77; O2SAT 95
[2017-08-25] VITALS (12 sets, daily range): BP systolic 95–134; BP diastolic 56–95; PULSE 65–108; TEMP 36.5–37; O2SAT 93–97
[2017-08-25] MEDS: METOPROLOL TARTRATE 1 MG/ML VIAL IV. SCH ×2 (00:18→06:00)
[2017-08-25 00:44] LABS: CREATININE 0.78 mg/dl (0.60-1.40); POTASSIUM 4.1 mmol/L (3.5-5.1)
[2017-08-25 00:45] LABS: PHOSPHORUS 3.2 mg/dl (2.5-4.9)
[2017-08-25] MEDS: D5W AND NSS 1,000 ML IV SCH (03:00)
[2017-08-25] MEDS: GABAPENTIN 600MG Q6H DOSE PO SCH ×3 (04:38→09:40)
[2017-08-25] MEDS: DILTIAZEM HCL INJ 125 MG in DEXTROSE 5% 100ML IV PRN (04:39)
[2017-08-25 06:55] LABS: BASO % 0.3 %; BASO ABS # 0.02 K/uL (0-0.2); EOS % 0.6 %; EOS ABS # 0.04 K/uL (0-0.5); HEMATOCRIT 41.9 % (42-52); HEMOGLOBIN 14.4 g/dL (14.0-18.0); IG# 0.02 K/uL (0.00-0.02); LYMPH % 24.6 %; LYMPH ABS # 1.58 K/uL (1.2-3.4); MEAN CELL VOLUME 92.3 fL (80-100); MEAN CORPUSCULAR HEMOGLOBIN 31.7 pg (25-34); MEAN CORPUSCULAR HGB CONC 34.4 g/dl (32-36); MEAN PLATELET VOLUME 9.9 fL (7.4-10.4); NEUT % 60.2 %; NEUT ABS # 3.85 K/uL (1.4-6.5); PLATELET COUNT 244 K/uL (130-400); RED CELL DISTRIBUTION WIDTH CV 14.1 % (11.5-14.5); WHITE BLOOD COUNT 6.41 K/uL (4.8-10.8)
[2017-08-25 07:04] LABS: PTT PATIENT 27.6 SECONDS (21.0-31.0)
[2017-08-25 07:27] LABS: ALBUMIN 3.5 gm/dl (3.4-5.0); ALT/SGPT 47 U/L (12-78); BLOOD UREA NITROGEN 7 mg/dl (7-18); CALCIUM 8.1 mg/dl (8.5-10.1); CARBON DIOXIDE 24 mmol/L (21-32); CHOLESTEROL 157 mg/dl (0-200); GLUCOSE 118 mg/dl (70-99); POTASSIUM 3.6 mmol/L (3.5-5.1); SODIUM 139 mmol/L (136-145)
[2017-08-25] MEDS ORDERED: HEPARIN 25,000 UNIT/500ML D5W 500 ML IV PRN (07:30)
[2017-08-25 07:33] LABS: ALKALINE PHOSPHATASE 71 U/L (45-117); AST/SGOT 36 U/L (15-37); LDL CHOLESTEROL CALCULATED 61 mg/dl; PHOSPHORUS 1.6 mg/dl (2.5-4.9); TOTAL PROTEIN 6.6 gm/dl (6.4-8.2)
--- NOTE | 2017-08-25 08:57 | ECHOCARDIOGRAM REPORT ---
*NOTICE TO RECEIVING REPUBL[employer] AGENCY This information is strictly Confidential and protected under [place] law. [place] law prohibits you from making any further disclosure of this information unless further disclosure is expressly permitted by the written consent of the person to whom it pertains or is authorized by law. A general authorization for the release of medical or other information is not sufficient for this purpose. Hospital accepts no responsibility if the information is made available to any other person, INCLUDING THE PATIENT. Interpretation Summary * Name: ROBIN GARDNER JR Study Date: 08/25/2017 06:43 AM BP: 119/74 mmHg * [facility]\1 HR: 69 * : 1985 (M/d/yyyy) Gender: Male Height: 69 in * Age: 31 yrs Ethnicity: [place] Weight: 192 lb * Ordering Physician: Maricruz Rodriguez * Referring Physician: Self, Referred * Performed By: Kit Robert RDCS * * Reason For Study: A-fub * BSA: 2.0 m2 * This was essentially a normal study. Procedure Details * A complete two-dimensional transthoracic echocardiogram was performed (2D, M-mode, Doppler and color flow Doppler). * The study was technically adequate. Left Ventricle * The left ventricle is normal in size. * There is normal left ventricular wall thickness. * Ejection Fraction = 55-60%. * The left ventricular wall motion is normal. Right Ventricle * The right ventricle is normal size. * The right ventricular systolic function is normal. Atria * The left atrial size is normal. * Right atrial size is normal. * The interatrial septum is intact with no evidence for an atrial septal defect. Mitral Valve * The mitral valve is normal in structure and function. Tricuspid Valve * The tricuspid valve is normal in structure and function. Aortic Valve * The aortic valve is normal in structure and function. Pulmonic Valve * The pulmonic valve is not well seen, but is grossly normal. Great Vessels * The aortic root and proximal ascending aorta are normal sized. Pericardium/Pleural * There is no pericardial effusion. MMode 2D Measurements and Calculations IVSd 0.71 cm IVSs 1.1 cm LVIDd 4.8 cm LVIDs 3.4 cm LVPWd 0.78 cm LVPWs 1.1 cm IVS/LVPW 0.91 FS 27.8 % EDV(Teich) 106.3 ml ESV(Teich) 49.1 ml EF(Teich) 53.8 % EDV(cubed) 109.0 ml ESV(cubed) 41.0 ml EF(cubed) 62.4 % % IVS thick 52.7 % % LVPW thick 44.7 % LV mass(C)d 115.1 grams LV mass(C)dI 56.7 grams/m\S\2 LV mass(C)s 118.0 grams LV mass(C)sI 58.1 grams/m\S\2 SV(Teich) 57.2 ml SI(Teich) 28.2 ml/m\S\2 SV(cubed) 68.0 ml SI(cubed) 33.5 ml/m\S\2 Ao root diam 3.1 cm Ao root area 7.8 cm\S\2 ACS 2.3 cm LA dimension 3.6 cm asc Aorta Diam 3.0 cm LA/Ao 1.1 LVOT diam 2.2 cm LVOT area 3.7 cm\S\2 LVAd ap4 18.1 cm\S\2 LVLd ap4 7.3 cm EDV(MOD-sp4) 38.5 ml EDV(sp4-el) 38.3 ml LVAs ap4 9.3 cm\S\2 LVLs ap4 6.2 cm ESV(MOD-sp4) 11.8 ml ESV(sp4-el) 12.0 ml EF(MOD-sp4) 69.4 % EF(sp4-el) 68.7 % LVAd ap2 26.1 cm\S\2 LVLd ap2 8.9 cm EDV(MOD-sp2) 63.9 ml EDV(sp2-el) 65.0 ml LVAs ap2 13.1 cm\S\2 LVLs ap2 7.1 cm ESV(MOD-sp2) 20.4 ml ESV(sp2-el) 20.6 ml EF(MOD-sp2) 68.1 % EF(sp2-el) 68.3 % LVLd %diff 12.2 % EDV(MOD-bp) 57.5 ml LVLs %diff 18.6 % ESV(MOD-bp) 15.8 ml EF(MOD-bp) 72.5 % SV(MOD-sp4) 26.7 ml SI(MOD-sp4) 13.2 ml/m\S\2 SV(MOD-sp2) 43.5 ml SI(MOD-sp2) 21.4 ml/m\S\2 SV(MOD-bp) 41.7 ml SI(MOD-bp) 20.5 ml/m\S\2 SV(sp4-el) 26.3 ml SI(sp4-el) 12.9 ml/m\S\2 SV(sp2-el) 44.4 ml SI(sp2-el) 21.9 ml/m\S\2 Doppler Measurements and Calculations MV E max indigo 104.1 cm/sec MV A max indigo 49.6 cm/sec MV E/A 2.1 MV dec time 0.17 sec Ao V2 max 122.4 cm/sec Ao max PG 6.0 mmHg Ao max PG (full) 1.7 mmHg IRMA(V,A) 3.1 cm\S\2 IRMA(V,D) 3.1 cm\S\2 LV V1 max PG 4.3 mmHg LV V1 max 103.1 cm/sec PA V2 max 85.1 cm/sec PA max PG 2.9 mmHg
[2017-08-25] MEDS ORDERED: HEPARIN SOD 5000 UNIT/0.5 ML CARP SQ SCH (09:00)
[2017-08-25] MEDS ORDERED: ASPIRIN 81 MG ECTAB PO SCH (09:00)
[2017-08-25] MEDS ORDERED: THIAMINE HCL 100 MG TAB PO SCH (09:00)
[2017-08-25] MEDS ORDERED: PANTOprazole SOD 40 MG TAB PO SCH (09:00)
[2017-08-25] MEDS ORDERED: MULTI-VITAMIN INFUSION INJ 10 ML, THIAMINE HCL INJ 100 MG, FoLIC ACID INJ 1 MG in SODIU... IV SCH (09:00)
[2017-08-25] MEDS ORDERED: THM100 PO (09:19)
[2017-08-25] MEDS ORDERED: FLV1 PO (09:19)
--- NOTE | 2017-08-25 09:22 | Discharge Instructions ---
Discharge Instructions Date of Service Aug 25, 2017. Admission Reason for Admission: Alcohol Withdrawal, Rapid Atrial Fibrillation Discharge Discharge Diagnosis / Problem: Atrial fibrillation with rapid ventrivular rate Discharge Goals Goal(s): Therapeutic intervention Activity Recommendations Activity Limitations: as noted below Lifting Limitations: gradually increase as tolerated Exercise/Sports Limitations: gradually increase as tolerated Please do not drink any alcohol; please re-consider outpatient treatment or at least meetings to help you refrain from any alcohol use. . Instructions / Follow-Up Instructions / Follow-Up Please see Dr. Canada next week as scheduled Current Hospital Diet Patient's current hospital diet: AHA Diet (Heart Healthy) Discharge Diet Recommended Diet: AHA Diet (Heart Healthy) Pending Studies Studies pending at discharge: no Laboratory Results Lipid Panel Test 08/25/17 06:18 Range/Units Triglycerides Level 243 H 0-150 mg/dl Cholesterol Level 157 0-200 mg/dl HDL Cholesterol 47 mg/dl Cholesterol/HDL Ratio 3.3 LDL Cholesterol, Calculated 61 mg/dl Medical Emergencies . Who to Call and When: Medical Emergencies: If at any time you feel your situation is an emergency, please call 911 immediately. . Non-Emergent Contact Non-Emergency issues call your: Primary Care Provider, Corporate Administrative Assistant . . "Provider Documentation" section prepared by Tamie German. . VTE Core Measure Inpt VTE Proph given/why not?: Unfractionated heparin SQ
--- NOTE | 2017-08-25 12:21 | CARDIOLOGY CONSULTATION ---
DATE OF CONSULTATION: 08/25/2017 REFERRING PHYSICIAN: Marzena gallagher. REASON FOR CONSULTATION: Atrial fibrillation. HISTORY OF PRESENT ILLNESS: This is a 31-year-old male patient who admits to drinking at least a bottle corinna daily. He apparently was bingeing the last several days and then developed flushing and sweating followed by a rapid heart rate. He presented to the Emergency Department where he was found to be in atrial fibrillation with RVR. The patient was first started on diltiazem and was given intravenous Lopressor. He was also given 1 mg of Ativan IV. The patient spontaneously converted to normal sinus rhythm this morning. His cardiac troponins are negative. He had an echocardiogram this morning, which is essentially normal. ALLERGIES: PERTUSSIS AND ACETAMINOPHEN. PAST MEDICAL HISTORY: The patient has minimal past medical history. No prior history of heart disease, diabetes, strokes or kidney disease. SOCIAL HISTORY: The patient is a smoker. He admits to at least 1 bottle corinna daily. FAMILY MEDICAL HISTORY: Noncontributory. REVIEW OF SYSTEMS: A 10-point review of systems is negative except for the history of chief complaint. PHYSICAL EXAMINATION: GENERAL: He is alert and oriented in no acute distress. VITAL SIGNS: Sinus rhythm. Blood pressure 130/90. He is afebrile. HEENT: He is normocephalic. Pupils are equal and reactive to light. Extraocular muscles are intact bilaterally. NECK: The neck veins are flat. Carotids have good upstrokes bilaterally without bruits. Thyroid is nonpalpable. RESPIRATORY: Breath sounds equal bilaterally and clear to auscultation. CARDIOVASCULAR: Heart has a regular rhythm. Normal S1 and S2. No S3 or S4. No cardiac rubs or murmurs. GASTROINTESTINAL: Abdomen is soft and nontender without organomegaly. EXTREMITIES: Free of edema, digit clubbing, or cyanosis. NEUROLOGIC: Grossly intact. SKIN: Warm to touch. LYMPH NODES: Negative to palpation. IMPRESSION: 1. Paroxysmal atrial fibrillation due to the holiday heart. 2. Alcohol withdrawal. RECOMMENDATIONS: The patient's echocardiogram is normal. I do not believe any additional cardiac testing is indicated at this time. I counseled the patient on the need to stop alcohol abuse and its potential for heart disease. He seems to understand. At this point, he is not interested in a rehabilitation program. From a cardiac standpoint, he can be discharged to outpatient followup.
--- NOTE | 2017-08-25 15:35 | Discharge Summary ---
Discharge Summary Date of Service Aug 25, 2017. Discharge Summary Admission Date: Aug 24, 2017 at 19:49 Discharge Date: Aug 25, 2017 Discharge Disposition: Home Principal Diagnosis: Atrial fibrillation with RVR, possible alcohol withdrawal Medication Reconciliation New Medications: Folic Acid (Folic Acid) 1 Mg Tab 1 TAB PO DAILY, #7 TABS Thiamine HCl (Vitamin B-1) 100 Mg Tab 100 MG PO DAILY, #7 TAB Admission Information HPI (per Admitting provider): This is a 31yo M with a PMH of alcohol abuse, tobacco and marijuana use who presents with palpitations that began at 3pm. Patient has been drinking heavily for years but has recently increased his intake due to 1 bottle of corinna a day due to work stress. Has had a bottle a day of corinna for the past 3 days with his last drink at 7pm last evening. Started to feel flushed and sweaty today, with a rapid heart rate.States that he has felt similar to this in withdrawal before but that his heart was beating much faster for a longer period of time today, so he had his family bring him from work to the ED for further evaluation. Endorses lightheadedness, nausea and some visual changes when he sits up or stands up quickly. Denies any fever, chills, pre-syncope, syncope, seizures, headache, confusion, chest pain, vomiting or difficulty with ambulation. Denies history of arrhythmias. Denies history of seizures with alcohol withdrawals in the past. Last used marijuana this morning. Physical Exam (per Admitting): General Appearance: + moderate distress, + pertinent finding (Anxious, flushed, sweaty.) Head: normocephalic, atraumatic Eyes: normal inspection, PERRL, sclerae normal ENT: normal ENT inspection, hearing grossly normal, pharynx normal (dry mucous membranes ) Neck: supple, thyroid normal, trachea midline Respiratory/Chest: lungs clear, normal breath sounds, no respiratory distress, no accessory muscle use Cardiovascular: normal peripheral pulses, + tachycardia, + irregularly irregular Abdomen/GI: non tender, soft, no organomegaly Extremities/Musculoskelatal: normal inspection, no calf tenderness, no pedal edema Neurologic/Psych: alert, normal mood/affect, oriented x 3 Skin: normal color (flushed ), warm/dry Hospital Course Patient was admitted with A fib with RVR, symptomatic with palpitations, and possible withdrawal after several days of heavy alcohol use. The patient's HR has been stable today off the cardizem drip and he was evaluated by Cardiology Dr. Prado who advised the patient to go to rehab for the alcoholism which the patient did refuse. The patient was also evaluated by the Radiator Fitter Dr. Roberson who did believe that the patient was not likely in withdrawal, but symptoms more likely from the A fib with RVR and did not believe the patient needed further ICU care. The patient was very anxious to leave the hospital despite being encouraged to stay for additional monitoring in telemetry as the A fib could recur and if the patient was indeed withdrawing he would benefit from being in the hospital however he did refuse that option as well and does not think he has alcohol dependence and only wants to go home. Alcohol withdrawal: -has intermittent history of heavy alcohol use -last drink was 24 hrs ago -presented with flushing, diaphoresis, rapid heart rate that began 3pm the day of admission; no prior hx of such symptoms -Etoh withdrawal protocol -Thiamine, banana bag, IVF -Consulted medical administrative specialist -Plan to initiate Precedex drip -on gabapentin A Fib with RVR: -secondary to alcohol use, and possible withdrawal -EKG with rapid A Fib at 197 bpm -Potassium, phosphorus, magnesium replaced -Given 20mg IV Cardizem in ED -Cardizem bolus and drip initiated -titrated from 10 mls/hr to 30mls/hr -Lopressor IV 5mg Q6H added -No IV heparin due to bleeding risk in setting of withdrawal -Cardio consulted -TTE: normal, EF 55-60% -Monitor closely PHYSICAL EXAM ON DAY OF DISCHARGE: GENERAL: Patient is in no acute distress. HEENT: No acute trauma, normocephalic atraumatic, mucous membranes moist, no nasal congestion, no scleral icterus, conjunctivae clear. NECK: No stridor, trachea is midline. LUNGS: Clear to auscultation bilaterally, no wheeze, no rhonchi, breath sounds equal. HEART: Without murmurs gallops or rubs, regular rate and rhythm. ABDOMEN: Soft, nontender, bowel sounds positive EXTREMITIES: No cyanosis or edema, full range of motion of all the joints without pain or difficulty, no signs for acute trauma. NEUROLOGIC: Oriented x 3, no acute motor or sensory deficits, no focal weakness. SKIN: No rash, no jaundice, no diaphoresis. Total time spent on discharge = 35 This includes examination of the patient, discharge planning, medication reconciliation, and communication with other providers. Discharge Instructions See patient instructions
[2017-08-25] MEDS ORDERED: GABAPENTIN 600MG Q8H DOSE PO SCH (18:00)
[2017-08-26] MEDS ORDERED: GABAPENTIN 600MG Q12H DOSE PO SCH (22:00)
[2017-08-28] MEDS ORDERED: GABAPENTIN 600MG Q24H DOSE PO SCH (10:00)
== END 2017-08-25 11:58 | disposition home or self-care (01) | DRG 310 ==
LOC: C.EDB 17:08 → ENRESERV 19:40 → C.MSICU 19:49 → EDBEDREQSVC 19:56 → ENRESERV 20:04
PROVIDERS: ADMIT Hospitalist; ATTEND Internal Medicine
DX: I48.0 Paroxysmal atrial fibrillation (principal); I42.6 Alcoholic cardiomyopathy; F10.229 Alcohol dependence with intoxication, unspecified; F17.200 Nicotine dependence, unspecified, uncomplicated; I10 Essential (primary) hypertension; F12.10 Cannabis abuse, uncomplicated; Z82.49 Family history of ischemic heart disease and other diseases of the circulatory system; E78.6 Lipoprotein deficiency